=== PATIENT | female | born 1990 | race Caucasian/White ===

== ENCOUNTER 2018-03-27 08:52 | Emergency (ER) | payer OTHER, SELFPAY ==
[2018-03-27 08:54] VITALS: BP 136/80; PULSE 107; PULSE 86; RESP 16; TEMP 36.5; O2SAT 100; BMI 52.7
--- NOTE | 2018-03-27 09:16 | ED.VISSUMM ---
- ER Visit Summary Date of Service: 03/27/18 Chief Complaint: Burn from iodine History of Present Illness: The patient is a 27 F with no primary care physician. She reports that she was assisting and castrating bulls 3 days ago and as part of this had iodine sprayed onto the pants of her right leg repeatedly over a 3 hour timeframe. She suffered a burn to the lateral portion of her distal right thigh. She denies any fever or chills. She reports that she has pain that is sharp. Is 10 out of 10 with walking 7 out of 10 after Advil. Physical Examination: Vitals: Stable. Afebrile. General: Well-nourished and well-developed. Head: Normocephalic atraumatic. Neck: Supple, no lymphadenopathy. No JVD. Nontender. Cardiovascular: Regular rate and rhythm. No murmurs. Respiratory: No respiratory distress. Clear to auscultation bilaterally. Abdominal: Soft, nontender, nondistended, normal bowel sounds. No guarding, rebound, or peritoneal signs. Back: Nontender. Extremities: Second-degree burn to the lateral portion of the distal right thigh posteriorly. This does not cross over the popliteal fossa. She is neurovascularly intact. No edema. Skin: Normal color, no rash. Neurologic: Alert and oriented ?3. Cranial nerves II through XII are intact. Normal strength and sensation. Psych: Normal affect. Emergency Department Course and Treatment: Patient had her tetanus updated. She refused pain medications. A dressing was placed. Treatment Plan: Treatment of this was discussed with the patient. She will be discharged with Bactroban ointment. Instructed to follow-up with the wound clinic in 2 days for a wound check. Return to the emergency department for any worsening symptoms. Disposition: To home in improved and stable condition. Impression: 1. Second-degree chemical burn right thigh. This note was generated with [employer] dictation software. It may contain incorrect words, spelling, and punctuation that were not noted in review of the chart prior to signing ED Disposition - Plan for ED Patient: Chief Complaint: Burn Instructions: ED Burn Chemical Prescriptions: Mupirocin Calcium [Bactroban] 30 gm TP 4X/DAY #1 tube Referrals: Clinic,Wound [None] - 2 Days for wound check
[2018-03-27] MEDS: Diphth,Pertuss(Acell),Tet Vac 0.5 ML Vial IM (09:22)
== END 2018-03-27 09:49 | disposition home or self-care (01) ==
LOC: ED 09:44
PROVIDERS: Emergency Provider Emergency Medicine
DX: T49.0X1A Poisoning by local antifungal, anti-infective and anti-inflammatory drugs, accidental (unintentional), initial encounter (principal); T24.611A Corrosion of second degree of right thigh, initial encounter; Y93.K9 Activity, other involving animal care; Y92.9 Unspecified place or not applicable; Y99.9 Unspecified external cause status; Z23 Encounter for immunization
CPT/HCPCS: 90715; 99282

== ENCOUNTER 2018-04-01 15:59 | Outpatient (RCR) | payer OTHER, SELFPAY | END 2018-04-08 23:59 | LOC: WC 15:59 | PROVIDERS: Family Provider Emergency Medicine; PCP Emergency Medicine; Visit Provider Nurse Practitioner Family | DX: Z53.9 Procedure and treatment not carried out, unspecified reason (principal) ==

== ENCOUNTER 2019-07-21 08:58 | Emergency (ER) | payer BC, SELFPAY ==
[2019-07-21 09:01] VITALS: BP 125/88; PULSE 110; RESP 20; TEMP 36.7; O2SAT 97; BMI 24.7
--- NOTE | 2019-07-21 09:13 | CT_ITS ---
STUDY: CT BRAIN WITHOUT CONTRAST REASON FOR EXAM: Female, 29 years old. Headaches, nausea vomiting and dizziness. History of left orbital fracture. RADIATION DOSAGE (If Supplied By Facility): CTDIvol = ( 44.99 ) mGy, DLP = ( 745.49 ) mGycm TECHNIQUE: Transaxial CT imaging of the brain was performed without administration of intravenous contrast material. Individualized dose optimization techniques were used for this CT. COMPARISON: No relevant priors. FINDINGS: Normal soft tissue structures. Normal calvarium. Normal size ventricles and extra-axial spaces for the patient's age. Normal white matter tracts of the cerebral hemispheres. Normal basal ganglia and thalami. Normal brainstem. Normal cerebellum. There is no intracranial hemorrhage. There are no findings of an acute ischemic infarction. Normal visualized paranasal sinuses. CT/Brain/Head without Contrast IMPRESSION: Normal unenhanced CT scan of the brain. Electronically Signed: Twan Huerta, at 10:26 EDT , Service support ,
--- NOTE | 2019-07-21 09:15 | EKG12_ITS ---
Test Reason : MÉNDEZ Blood Pressure : / mmHG Vent. Rate : 096 BPM Atrial Rate : 096 BPM P-R Int : 188 ms QRS Dur : 082 ms QT Int : 392 ms P-R-T Axes : 064 023 019 degrees QTc Int : 495 ms Normal sinus rhythm Possible Left atrial enlargement Prolonged QT Abnormal ECG Confirmed by JODI REYES, DELILAH ([id number]), deputy editor in chief GORGE TYLER ([id number] on 07/25/2019 3:37:09 PM Referred By: GORDON Confirmed By:VIK ZAPATA MD
[2019-07-21 09:24] LABS: Absolute Lymphocyte Count 1.47 X10^3/uL (0.83-4.51); Absolute Neutrophil Count 4.3 X10^3/uL (2.0-7.7); Basophil# 0.03 X10^3/uL; Basophil% 0.5 % (0-1); Eosinophil# 0.05 X10^3/uL; Eosinophils% 0.8 % (0-5); Hematocrit 43.3 % (37-47); Hemoglobin 14.6 g/dL (12.0-15.0); Lymphocyte # 1.47 X10^3/ul (4.0); Lymphocyte % 22.8 % (19-41); Mean Corp Hgb Conc 33.7 g/dL (32-36); Mean Corpuscular Hgb 30.7 pg (27.0-32.0); Mean Corpuscular Volume 91.2 fL (81-99); Mean Platelet Vol. 10.9 fl (6.2-12.0); Monocyte# 0.61 X10^3/uL; Monocyte% 9.5 % (0-10); NRBC Flagged by Analyzer 0 % (0-5); Neutrophil # 4.26 X10^3/uL (2.7-7.7); Neutrophil % 65.9 % (47-70); Platelet Count 198 K/mm3 (150-450); RBC Distribution Width CV 11.9 % (11.6-14.6); RBC Distribution Width SD 39.9 fl (35.1-43.9); Red Blood Count 4.75 M/mm3 (4.2-5.4); White Blood Count 6.5 K/mm3 (4.4-11.0)
[2019-07-21] MEDS: 0.9% Normal Saline 1,000 ML 999 ML IV (09:25)
[2019-07-21] MEDS: Metoclopramide 10 MG/2 ML Vial IV (09:25)
[2019-07-21 09:35] LABS: Internal QC Validated? YES +Cl - CLEAR BKGD; Pregnancy, Serum, hCG Quali. NEGATIVE Negative
[2019-07-21 09:37] LABS: Anion Gap 6 (5-15); BUN 14 mg/dL (7-18); BUN/Creat Ratio 14.3 RATIO (10-20); Calcium,Total 8.9 mg/dL (8.5-10.1); Chloride 107 mmol/L (98-107); Creatinine, Serum 0.98 mg/dL (0.55-1.02); EST Glomerular Filtration Rate 72 mL/min (>60); Est Glom Filt Rate - Afr Amer 87 mL/min (>60); Estimated Creatinine Clearance 71.33 ml/min; Glucose 113 mg/dL (74-106); Potassium 3.5 mmol/L (3.5-5.1); Sodium Level 137 mmol/L (136-145)
--- NOTE | 2019-07-21 10:51 | ED.VIS.GEN ---
History of Present Illness Chief Complaint: Headache Informant: Patient Onset: Today Narrative: Patient presents here with mother reports left occipital headache and lightheaded symptoms starting this morning. States she went outside to feed the cows, she could not catch her breath. Denies cough. States that symptoms improving. Nausea and vomiting x1 in the ED. Denies visual changes. Denies photophobia or phonophobia. Denies any aura. No previous similar symptoms. She is on oral contraceptives, last menstrual period within this last week. Denies abdominal pain. No urinary symptoms. Denies chest pain or cough. Prior similar symptoms: No Past Medical History - Allergies and Home Meds Allergies/Adverse Reactions: Allergies Penicillins [PCN] Allergy (Verified 03/27/18 08:54) Hives Sulfa (Sulfonamide Antibiotics) Allergy (Verified 03/27/18 08:54) Hives sulfamethoxazole [From Bactrim] Allergy (Verified 07/21/19 09:01) Hives trimethoprim [From Bactrim] Allergy (Verified 07/21/19 09:01) Hives Primary Care Physician: Care Physician,No Primary [Primary Care Provider] - Smoking Status: Never smoker Review of Systems General: Denies: Chills, Fever, Sweats Eyes: Denies: Visual changes - bilaterally, Diplopia ENT: Denies: Rhinorrhea, Sore throat Cardiovascular: Denies: Chest pain, Palpitations Respiratory: Denies: Dyspnea, Cough, Dyspnea on exertion Gastrointestinal: Reports: Nausea, Vomiting. Denies: Abdominal pain, Diarrhea, Melena, Hematochezia Genitourinary: Denies: Dysuria, Hematuria, Frequency Musculoskeletal: Denies: Back pain, Extremity Pain Skin: Denies: Rash, Wounds Neurological: Reports: Headache. Denies: Weakness, Numbness Physical Exam Vital Signs/Narrative: Vital Signs Temp Pulse Resp BP Pulse Ox 07/21/19 09:01 98.1 F 110 H 20 H 125/88 H 97 Inital Vital Signs reviewed: Yes General: Well nourished, Well developed, No Acute Distress Head: Normocephalic, Atraumatic Eyes: Perrl, EOMI ENT: Moist mucous membranes, No rhinorrhea Neck: Supple, Nontender, - - No meningismus Cardiovascular: Regular rate, Regular rhythm, No murmurs Respiratory: No distress, CTA bilaterally, Chest nontender Abdomen: Soft, Nontender, Nondistended, Normal bowel sounds Back: Nontender, Normal Inspection Extremities: Nontender, No edema Skin: Normal color, No rash Neurological: Alert, Oriented x3, Cranial nerves II-XII grossly intact, Normal Strength, Normal Sensation Psychological: Normal affect, Normal Mood Diagnostic/Tx/Re-eval Clinical Impression(s) from Imaging Studies Brain CT 07/21/19 09:13 IMPRESSION: Normal unenhanced CT scan of the brain. Electronically Signed: Twan Huerta, at 10:26 EDT , Service support , Abnormal Lab Results 07/21/19 07/21/19 07/21/19 09:17 09:17 09:17 WBC 6.5 RBC 4.75 Hgb 14.6 Hct 43.3 MCV 91.2 MCH 30.7 MCHC 33.7 RDW Std Deviation 39.9 RDW Coeff of Cesar 11.9 Plt Count 198 MPV 10.9 Immature Gran % (Auto) 0.500 Neut % (Auto) 65.9 Lymph % (Auto) 22.8 [place] % (Auto) 9.5 Eos % (Auto) 0.8 Baso % (Auto) 0.5 Absolute Neuts (auto) 4.3 Absolute Lymphs (auto) 1.47 Nucleated RBC % 0 Sodium 137 Potassium 3.5 Chloride 107 Carbon Dioxide 24.0 Anion Gap 6 BUN 14 Creatinine 0.98 Estim Creat Clear Calc 71.33 Est GFR (MDRD) Af Amer 87 Est GFR (MDRD) Non-Af 72 BUN/Creatinine Ratio 14.3 Glucose 113 H Calcium 8.9 Magnesium TSH Serum , Qual NEGATIVE 07/21/19 11:00 WBC RBC Hgb Hct MCV MCH MCHC RDW Std Deviation RDW Coeff of Cesar Plt Count MPV Immature Gran % (Auto) Neut % (Auto) Lymph % (Auto) [place] % (Auto) Eos % (Auto) Baso % (Auto) Absolute Neuts (auto) Absolute Lymphs (auto) Nucleated RBC % Sodium Potassium Chloride Carbon Dioxide Anion Gap BUN Creatinine Estim Creat Clear Calc Est GFR (MDRD) Af Amer Est GFR (MDRD) Non-Af BUN/Creatinine Ratio Glucose Calcium Magnesium 2.0 TSH 2.21 Serum , Qual - EKG Initial EKG Interpretation: Sinus Rhythm - Sinus rhythm rate of 96, no ST or T wave changes. There was noted QTC of 495. - Medical Decision Making Patient nontoxic, no meningismal findings. With her headache symptoms, treated with migraine regimen of Reglan and Benadryl with improvement of symptoms. Head CT was obtained due to no previous headache which was negative. With her lightheaded symptoms I did check labs with normal electrolytes given fluids, EKG obtained noting QT prolongation of 495. Patient headaches improved, due to her QT prolongation, I spoke with covering gas furnace installer Dr. Abdul, who agrees with a 48-hour Holter monitor. She will be seen as an outpatient in their office. All questions were answered with the patient. ED Disposition - Plan for ED Patient: Disposition: Home or Assisted Living Diagnosis: Headache, Prolonged QT interval Instructions: HEADACHE, Unspecified Referrals: Care Physician,No Primary [Primary Care Provider] - Michel Abdul MD [STAFF PHYSICIAN] - 3-5 Days Additional Instructions: Prolonged QT on EKG. Wearing a Holter monitor 48 hours. Follow-up with cardiology as discussed.
[2019-07-21 11:38] LABS: Thyroid Stim Hormone (TSH) 2.21 uIU/mL (0.358-3.74)
[2019-07-21 12:08] VITALS: BP 107/65; PULSE 75; RESP 16; O2SAT 100
[2019-07-21 13:24] VITALS: BP 108/64; PULSE 88; RESP 16; O2SAT 99
== END 2019-07-21 13:25 | disposition home or self-care (01) ==
PROVIDERS: Emergency Provider Emergency Medicine
DX: R51 Headache (principal); I45.81 Long QT syndrome; R42 Dizziness and giddiness; R11.2 Nausea with vomiting, unspecified; Z79.3 Long term (current) use of hormonal contraceptives; Z88.0 Allergy status to penicillin; Z88.2 Allergy status to sulfonamides; Z88.1 Allergy status to other antibiotic agents
CPT/HCPCS: 70450; 80048; 83735; 84443; 84703; 85025; 93005; 96361; 96374; 99283; J7030; A4216

== ENCOUNTER → 2019-07-21 13:16 | Outpatient (CLI) | payer BC, SELFPAY ==
[2019-07-21 09:01] VITALS: BMI 24.7
== END ==
PROVIDERS: Referring Provider Specialist; Visit Provider Specialist
DX: I45.81 Long QT syndrome (principal)
CPT/HCPCS: 93225; 93226